=== PATIENT | male | born 1970 | race Caucasian/White ===

== ENCOUNTER 2017-08-11 16:22 | Inpatient (IN) | payer OTHER ==
[~2017-08-11] VITALS: Ht 175.3 cm; Wt 111.9 kg
[~2017-08-11 16:22] MED LIST: CELEBREX50 MG; FLONASEALLERGY; HCTZ 25MG TAB25 MG; PRILOSEC 20MG20 MG; SINGULAIR 110 MG/TAB; VISTARIL 2525 MG/CAP PO; WELLBUTRIN 75MG75 MG; ZENZEDI5 MG; ZESTRIL 5MG5 MG PO; ZYRTEC5 MG
[2017-08-11 17:00] LABS: BASO % 0.3 % (0.0-2.0); EOS # 0.1 (0.0-0.7); EOS % 0.7 % (0-4.0); GRAN # 9.8 (1.4-6.5); LYMPH # 1.1 (1.2-3.4); LYMPH % 8.7 % (20.0-51.0); MEAN CELL VOLUME 91 fl (80.0-100.0); MEAN CORPUSCULAR HEMOGLOBIN 32 pg (27.0-31.0); MEAN CORPUSCULAR HGB CONC 35 g/dl (33.0-37.0); MEAN PLATELET VOLUME 10.7 fl (7.4-10.4); MONO % 8.6 % (1.7-9.3); PLATELET COUNT 227 K/mm3 (130-400); RED BLOOD COUNT 5.05 M/mm3 (4.20-5.60); REDCELL DISTRIBUTION WIDTH-CV 12.4 % (11.5-14.5)
[2017-08-11 17:02] LABS: ALBUMIN 5.1 gm/dL (3.5-5.0); BILIRUBIN,TOTAL 0.6 mg/dL (0.0-1.0); CALCIUM 9.5 mg/dL (8.4-10.2); CREATININE, serum 1.48 mg/dL (0.66-1.25); POTASSIUM 3.7 mmol/L (3.4-5.0); TOTAL PROTEIN 8.3 gm/dL (6.4-8.2)
[2017-08-11 17:40] LABS: ARTERIAL BLD GAS O2 SATURATION 89.1 % (92-100); ARTERIAL BLD GAS TCO2 CT 22.4; ARTERIAL BLOOD GAS BASE EXCESS -1.5 (-2-2); ARTERIAL BLOOD GAS HCO3 21.5 meq/L (22-26); ARTERIAL BLOOD GAS PCO2 31.8 mmHg (35-45); ARTERIAL BLOOD GAS pH 7.45 (7.35-7.45)
[2017-08-11] MEDS ORDERED: PROAIR HFA0.09 MG/AC IH (18:04)
[2017-08-11] MEDS ORDERED: SPIRIVA RE2.5 MCG/Ac IH (18:07)
[2017-08-11] MEDS ORDERED: MOBIC15 MG PO (18:10)
[2017-08-11] MEDS ORDERED: CLARITIN 1010 MG/TAB PO (18:11)
[2017-08-11 20:49] VITALS: BP 105/61; PULSE 106; TEMP 98.9
[2017-08-12 00:03] VITALS: BP 111/65; PULSE 106; TEMP 98.6
[2017-08-12 03:38] VITALS: BP 103/62; PULSE 104; TEMP 98.8
[2017-08-12 06:30] LABS: BASO % 0.1 % (0.0-2.0); GRAN # 6.2 (1.4-6.5); GRAN % 86.2 % (42.2-75.2); HEMATOCRIT 41.3 % (42.0-52.0); HEMOGLOBIN 14.1 g/dl (13.5-18.0); LYMPH # 0.8 (1.2-3.4); MEAN CELL VOLUME 91 fl (80.0-100.0); MEAN CORPUSCULAR HEMOGLOBIN 31 pg (27.0-31.0); MEAN CORPUSCULAR HGB CONC 34 g/dl (33.0-37.0); MEAN PLATELET VOLUME 10.8 fl (7.4-10.4); MONO # 0.1 (0.1-0.6); MONO % 1.7 % (1.7-9.3); PLATELET COUNT 220 K/mm3 (130-400); RED BLOOD COUNT 4.52 M/mm3 (4.20-5.60); REDCELL DISTRIBUTION WIDTH-CV 12.5 % (11.5-14.5)
[2017-08-12 06:45] LABS: CALCIUM 9.2 mg/dL (8.4-10.2); CREATININE, serum 1.13 mg/dL (0.66-1.25); POTASSIUM 3.7 mmol/L (3.4-5.0)
[2017-08-12 08:26] VITALS: BP 122/63; PULSE 117; TEMP 98.3
[2017-08-12 11:48] VITALS: BP 115/71; PULSE 110; TEMP 97.9
[2017-08-12 16:02] VITALS: BP 117/61; PULSE 114; TEMP 98
[2017-08-12 20:09] VITALS: BP 110/67; PULSE 105; TEMP 97.6
[2017-08-13] VITALS: BP 121/62; PULSE 100; TEMP 97.8
[2017-08-13 05:01] VITALS: BP 125/67; PULSE 85; TEMP 98.2
[2017-08-13 07:01] LABS: HEMATOCRIT 39.2 % (42.0-52.0); HEMOGLOBIN 13.3 g/dl (13.5-18.0); MEAN CELL VOLUME 94 fl (80.0-100.0); MEAN CORPUSCULAR HEMOGLOBIN 32 pg (27.0-31.0); MEAN CORPUSCULAR HGB CONC 34 g/dl (33.0-37.0); MEAN PLATELET VOLUME 10.9 fl (7.4-10.4); PLATELET COUNT 202 K/mm3 (130-400); RED BLOOD COUNT 4.18 M/mm3 (4.20-5.60); REDCELL DISTRIBUTION WIDTH-CV 12.8 % (11.5-14.5)
[2017-08-13 07:16] LABS: CREATININE, serum 0.98 mg/dL (0.66-1.25); POTASSIUM 3.5 mmol/L (3.4-5.0)
[2017-08-13 08:14] VITALS: BP 131/76; PULSE 87; TEMP 97.4
[2017-08-13 09:18] LABS: BAND 6 % (0-10); LYMPHOCYTE 23 % (20.0-51.0); METAMYELOCYTE 1 % (0-0); NEUTROPHILS 69 % (42.0-75.2); PLATELET ESTIMATE NORMAL (NORMAL)
[2017-08-13 11:26] VITALS: BP 130/71; PULSE 96; TEMP 97.9
[2017-08-13 15:43] VITALS: BP 122/66; PULSE 82; TEMP 98.7
[2017-08-13 20:12] VITALS: BP 131/72; PULSE 86; TEMP 97.7
[2017-08-14 00:19] VITALS: BP 106/79; PULSE 75; TEMP 97.7
[2017-08-14 03:58] VITALS: BP 125/71; PULSE 83; TEMP 97.5
[2017-08-14 06:22] LABS: BASO % 0.2 % (0.0-2.0); EOS # 0.1 (0.0-0.7); EOS % 0.7 % (0-4.0); GRAN # 7.2 (1.4-6.5); GRAN % 60.1 % (42.2-75.2); HEMATOCRIT 39.3 % (42.0-52.0); HEMOGLOBIN 13.4 g/dl (13.5-18.0); LYMPH # 3.4 (1.2-3.4); LYMPH % 28.1 % (20.0-51.0); MEAN CELL VOLUME 93 fl (80.0-100.0); MEAN CORPUSCULAR HEMOGLOBIN 32 pg (27.0-31.0); MEAN CORPUSCULAR HGB CONC 34 g/dl (33.0-37.0); MONO # 1.2 (0.1-0.6); MONO % 9.8 % (1.7-9.3); PLATELET COUNT 188 K/mm3 (130-400); RED BLOOD COUNT 4.22 M/mm3 (4.20-5.60); REDCELL DISTRIBUTION WIDTH-CV 12.7 % (11.5-14.5)
[2017-08-14 06:31] LABS: CALCIUM 9.1 mg/dL (8.4-10.2); CREATININE, serum 0.97 mg/dL (0.66-1.25); POTASSIUM 3.6 mmol/L (3.4-5.0)
[2017-08-14 07:43] VITALS: BP 124/84; PULSE 76; TEMP 97.8
[2017-08-14] MEDS ORDERED: ZESTRIL 5MG5 MG PO (11:15)
[2017-08-14] MEDS ORDERED: PREDNISONE20 MG PO (11:16)
[2017-08-14] MEDS ORDERED: PROAIR HFA0.09 MG/AC IH (11:20)
[2017-08-14 11:47] VITALS: BP 117/78; PULSE 86; TEMP 98.4
== END 2017-08-14 14:42 | disposition home or self-care (01) | DRG 191 ==
LOC: COL.ER 16:22 → MEDICAL 18:57
PROVIDERS: Family Medicine; Nurse Practitioner; Nurse Practitioner Family
DX: J44.1 Chronic obstructive pulmonary disease with (acute) exacerbation (principal); N17.9 Acute kidney failure, unspecified; I10 Essential (primary) hypertension; E86.0 Dehydration; K21.9 Gastro-esophageal reflux disease without esophagitis; F17.220 Nicotine dependence, chewing tobacco, uncomplicated; F17.290 Nicotine dependence, other tobacco product, uncomplicated
CPT/HCPCS: 99222-AI; 99232-AI; 99239; J1170; J2920; J2930; J7030; J7512